=== PATIENT | male | born 1995 | race Caucasian/White ===

== ENCOUNTER 2018-09-12 01:15 | Emergency (ER) | payer SELFPAY ==
[2018-09-12] MEDS ORDERED: Ketorolac Tromethamine 30 MG/ML VIAL ONE (02:01)
--- NOTE | 2018-09-12 08:08 | RAD ---
LEFT WRIST 3 VIEWS: Date: 09/12/18 HISTORY: Left wrist injury. FINDINGS: Scaphoid waist and ulnar styloid are intact. No acute fracture or dislocation. IMPRESSION: No acute osseous abnormalities are demonstrated. POS: TEENA
--- NOTE | 2018-09-12 08:09 | RAD ---
LEFT HAND 3 VIEWS: Date: 09/12/18 HISTORY: Left hand injury. FINDINGS: Joint spaces are preserved. No acute fracture, dislocation, or radiopaque foreign bodies are apparent . IMPRESSION: No acute osseous abnormalities are demonstrated. POS: KISHA[facility]
== END 2018-09-12 02:28 | disposition home or self-care (01) ==
LOC: SCSER 01:15
DX: S60.152A Contusion of left little finger with damage to nail, initial encounter (principal); W22.8XXA Striking against or struck by other objects, initial encounter
CPT/HCPCS: 96372; J1885

== ENCOUNTER 2022-10-22 07:37 | Outpatient (CLI) | payer OTHER | END 2022-10-22 07:38 | disposition home or self-care (01) | LOC: SCSMRI 07:37 | PROVIDERS: ATTEND Orthopaedic Surgery | DX: M23.91 Unspecified internal derangement of right knee (principal); S83.242A Other tear of medial meniscus, current injury, left knee, initial encounter; S83.282A Other tear of lateral meniscus, current injury, left knee, initial encounter; M65.88 Other synovitis and tenosynovitis, other site ==

== ENCOUNTER 2022-11-07 07:08 | Day surgery (SDC) | payer OTHER ==
[2022-11-07] MEDS ORDERED: PROPOFOL 20 ML ONE (08:24)
[2022-11-07] MEDS ORDERED: Lidocaine 2% PF 5 ML VIAL ONE (08:24)
[2022-11-07] MEDS ORDERED: Bupivacaine PF 0.5% 30 ML VIAL ONE ×2 (08:24→12:36)
[2022-11-07 08:36] LABS: #Eosinphils 0.1 thou/uL (0.0-0.7); #Lymphocytes 1.6 thou/uL (1.20-3.40); #Monocytes 0.4 thou/uL (0.11-0.59); #Neutrophils 3.6 thou/uL (1.40-6.50); %Basophils 0.4 % (0.0-1.0); %Lymphocytes 28.1 % (21.0-51.0); %Monocytes 6.3 % (0.0-10.0); %Neutrophils 64.2 % (42.0-75.0); Hemoglobin 13.2 g/dL (14.0-18.0); Mean Corpuscular HGB CONC 32.8 g/dL (32.0-36.0); Mean Corpuscular Volume 91.4 fl (78.0-98.0); Mean Platelet Volume 8.8 fL (7.4-10.4); Platelet Count 184 10x3/uL (130-400); RBC Distribution Width 11.3 % (11.5-14.5); White Blood Cell (WBC) Count 5.6 10x3/uL (4.8-10.8)
[2022-11-07] MEDS ORDERED: fentaNYL PF 100 MCG/2 ML SYRINGE ONE (09:41)
[2022-11-07] MEDS ORDERED: Bupivacaine HCl 0.5%/Epinephrine 1:200,000/PF 30 ml Vial ONE ×2 (09:42→13:35)
[2022-11-07] MEDS ORDERED: Sodium Chloride 0.9% 100 ML ONE (09:48)
[2022-11-07] MEDS ORDERED: CEFAZOLIN 2 GM VIAL ONE (09:48)
[2022-11-07] MEDS ORDERED: Lidocaine 1% PF 5 ML VIAL ONE (09:59)
[2022-11-07] MEDS ORDERED: Ketorolac Tromethamine 30 MG/ML VIAL ONE (09:59)
[2022-11-07] MEDS ORDERED: Dexamethasone 20 MG/5 ML VIAL ONE (09:59)
[2022-11-07] MEDS ORDERED: PROPOFOL 200 MG/20 ML VIAL ONE (09:59)
[2022-11-07] MEDS ORDERED: Ondansetron PF 4 MG/2 ML Vial ONE (09:59)
[2022-11-07] MEDS ORDERED: fentaNYL 50 mcg/mL 1 mL Vial ONE ×2 (12:11→12:28)
[2022-11-07] MEDS ORDERED: HYDROmorphone 0.5 MG/0.5 ML SYRINGE ONE ×4 (12:19→13:13)
[2022-11-07] MEDS ORDERED: Dexamethasone 4 mg/ml Vial ONE (12:36)
[2022-11-07] MEDS ORDERED: HYDROcodone/Acetaminophen 5/325 mg Tablet ONE (14:24)
== END 2022-11-07 16:00 | disposition home or self-care (01) ==
LOC: SDC 07:08
PROVIDERS: ATTEND Orthopaedic Surgery
PROC: 0SBC0ZZ Excision of Right Knee Joint, Open Approach (ICD-10-PCS; principal; 2022-11-07)
PROC: 0SBC4ZZ Excision of Right Knee Joint, Percutaneous Endoscopic Approach (ICD-10-PCS; principal; 2022-11-07)
DX: M65.88 Other synovitis and tenosynovitis, other site (principal); F17.290 Nicotine dependence, other tobacco product, uncomplicated
CPT/HCPCS: 85025; 88305; J1100; J1170; J1885; J2001; J2405; J2704; J3010; J3490; S0020